=== PATIENT | male | born 1985 | race Hispanic/Latino ===

== ENCOUNTER 2018-08-27 18:57 | Emergency (ER) | payer BC ==
[2018-08-27 19:10] VITALS: BP 153/95; PULSE 106; RESP 18; TEMP 98.3; O2SAT 98
--- NOTE | 2018-08-27 20:01 | ED PDOC ---
HPI: Dental Pain/Injury Time Seen by Provider: 08/27/18 20:00 Chief Complaint (Nursing): Dental Pain Chief Complaint (Provider): right facial pain/swelling History Per: Patient History/Exam Limitations: no limitations Onset/Duration Of Symptoms: Hrs Current Symptoms Are (Timing): Better Additional Complaint(s): Bhaskar Sesay is a 32 year old male, with no significant past medical history, who presents to the emergency department complaining of right facial swelling onset at 17:00. Patient states he was seen by dentist and was prescribed Clindamycin for right facial swelling. Patient was advised to take antibiotics prior to any procedure for tooth removal. He took one dose at 17:00 and woke up from a nap feeling like his eye was swollen but states it has improved now. He denies any fever, chills, difficulty breathing or other medical complaints. PMD: None provided. Past Medical History Reviewed: Historical Data, Nursing Documentation, Vital Signs Vital Signs: Last Vital Signs Temp 98.3 F 08/27/18 19:10 Pulse 106 H 08/27/18 19:10 Resp 18 08/27/18 19:10 BP 153/95 H 08/27/18 19:10 Pulse Ox 98 08/27/18 19:10 - Medical History PMH: No Chronic Diseases - Surgical History Surgical History: No Surg Hx - Family History Family History: States: Unknown Family Hx - Allergies Allergies/Adverse Reactions: Allergies Allergy/AdvReac Type Severity Reaction Status Date / Time No Known Allergies Allergy Verified 08/27/18 19:12 Review of Systems ROS Statement: Except As Marked, All Systems Reviewed And Found Negative Constitutional: Negative for: Fever, Chills ENT: Positive for: Other (right sided facial swelling) Respiratory: Negative for: Shortness of Breath Physical Exam - Reviewed Nursing Documentation Reviewed: Yes Vital Signs Reviewed: Yes - Physical Exam Appears: Positive for: No Acute Distress Head Exam: Positive for: ATRAUMATIC, NORMAL INSPECTION, NORMOCEPHALIC Skin: Positive for: Normal Color, Warm, Dry Eye Exam: Positive for: Normal appearance, EOMI, PERRL ENT: Positive for: Other (Right facial swelling. Able to open and close jaw w/o difficulties. Able to swallow w/o difficulties. ) Neck: Positive for: Normal, Painless ROM Cardiovascular/Chest: Positive for: Regular Rate, Rhythm. Negative for: Murmur Respiratory: Positive for: Normal Breath Sounds. Negative for: Respiratory Distress Extremity: Positive for: Normal ROM (upper and lower extremities). Negative for: Deformity, Swelling Neurologic/Psych: Positive for: Alert, Oriented - ECG O2 Sat by Pulse Oximetry: 98 (RA) Pulse Ox Interpretation: Normal Medical Decision Making Medical Decision Making: Time: 20:00 Initial Impression: Dental pain Initial Plan: 20:00 -Discussed options of CT face and IV Clindamycin. Patient states he would prefer to try antibiotics for x24-48 hours. ----- Scribe Attestation: Documented by Conrad Rock, acting as a scribe for Jennifer Keene PA-C. Provider Scribe Attestation: All medical record entries made by the Scribe were at my direction and personally dictated by me. I have reviewed the chart and agree that the record accurately reflects my personal performance of the history, physical exam, medical decision making, and the department course for this patient. I have also personally directed, reviewed, and agree with the discharge instructions and disposition. Disposition - Clinical Impression Clinical Impression: Dental infection - Patient ED Disposition Is Patient to be Admitted: No - Disposition Disposition: Routine/Home Disposition Time: 20:00 Condition: FAIR Additional Instructions: continue with cilndamycin Instructions: Tooth Abscess (DC), Dental Pain (DC)
== END 2018-08-27 20:20 | disposition home or self-care (01) ==
LOC: H.ER 18:57
DX: K04.7 Periapical abscess without sinus (principal)